=== PATIENT | female | born 1990 | race African-American/Black ===

== ENCOUNTER 2017-03-05 09:49 | Emergency (ER) | payer BC ==
[~2017-03-05] VITALS: Ht 165.1 cm; Wt 78.0 kg
[2017-03-05] MEDS ORDERED: PREDNISONE 20 M20 MG PO (11:52)
[2017-03-05] MEDS ORDERED: ALBUTEROL2.5 MG/31 INH (11:52)
== END 2017-03-05 12:13 | disposition home or self-care (01) ==
LOC: ER 09:49 → EDBD 09:49 → ER 12:13
DX: B34.9 Viral infection, unspecified (principal); J45.901 Unspecified asthma with (acute) exacerbation